=== PATIENT | female | born 1930 | race Caucasian/White ===

== ENCOUNTER 2016-12-25 08:14 | Observation (INO) | payer OTHER ==
--- NOTE | 2016-12-25 08:34 | CPEKG ---
Heart Rate: 95 RR Interval: 632 P-R Interval: 144 QRSD Interval: 80 QT Interval: 348 QTC Interval: 438 P [place]: 15 QRS [place]: 60 T Wave [place]: 59 EKG Severity - OTHERWISE NORMAL ECG - EKG Impression: SINUS RHYTHM EKG Impression: VENTRICULAR PREMATURE COMPLEX Electronically Signed By: Latricia Yi 25-Dec-2016 14:24:50
--- NOTE | 2016-12-25 09:05 | EDPHY ---
H & P Time Seen by Provider: 12/25/16 08:18 HPI/ROS: CHIEF COMPLAINT: Chest pain, SVT HISTORY OF PRESENT ILLNESS: Patient is an 86-year-old female with a history of SVT, pacer in place, coronary artery disease who presents emergency department with chest pain and palpitations. Patient called EMS from home after developing substernal chest pain. She describes it as sharp and moderate. It did not radiate. She denies shortness of breath, nausea or vomiting. She had no diaphoresis. Patient describes palpitations. She has no recent illness. No leg pain or swelling. EMS reports that they found the patient with a heart rate of 180. She was given adenosine 6 mg IV and converted to a sinus/paced rhythm REVIEW OF SYSTEMS: My complete review of systems is negative except as mentioned in the HPI. Past Medical/Surgical History: Includes hypertension, coronary artery disease. Of note, the patient is on warfarin. She is unclear why she is taking this medication. I reviewed her record from the detention was unable to find a dysrhythmia or atrial fibrillation listed. " Cardiac" was checked on her paperwork. Past surgical history: Includes Stent placement Social history: The patient lives in independent living at [facility]. Smoking Status: Former smoker Physical Exam: Vitals noted GENERAL: Well-appearing, in no acute distress, alert. HEENT: Eyes normal to inspection, normal pharynx, no signs of dehydration. NECK: No thyromegaly, no lymphadenopathy, supple. RESPIRATORY: Clear to auscultation bilaterally, no rales, rhonchi or wheezing. CVS: Regular rate and rhythm, no rubs, murmurs, or gallops. ABDOMEN: Soft, nontender, nondistended, no organomegaly. BACK: Normal to inspection, no CVA tenderness. SKIN: Normal color, no rash, warm, dry. No pallor. EXTREMITIES: No pedal edema, no calf tenderness, no Homans sign or cords, no joint swelling. NEURO/PSYCH: Alert and oriented x3, normal mood and affect, normal motor sensory exam. No obvious cranial nerve deficit. Constitutional: Initial Vital Signs Temperature (C) 36.4 C 12/25/16 08:31 Heart Rate 94 12/25/16 08:31 Respiratory Rate 21 H 12/25/16 08:31 Blood Pressure 166/102 H 12/25/16 08:31 O2 Sat (%) 96 12/25/16 08:31 O2 Delivery Mode Nasal Cannula O2 (L/minute) 3 Allergies/Adverse Reactions: Opioids - Morphine Analogues Allergy (Verified 12/25/16 08:29) Home Medications: Medication Instructions Recorded Crestor 12/25/16 Furosemide 12/25/16 Isosorbide Dinitrate 12/25/16 Metoprolol Succinate 12/25/16 Nitroglycerin 12/25/16 Potassium 12/25/16 Spiriva Handihaler 12/25/16 Warfarin Sodium 12/25/16 Medical Decision Making - Diagnostics EKG Interpretation: Sinus rhythm at 95. The PC. Normal axis. Normal intervals. No ST or T-wave abnormalities. Of note, there are pacer spikes noted on the strips from EMS. ED Course/Re-evaluation: I met EMS on arrival. Report was taken from the automotive parts coordinator. I reviewed the patient's EKG and rhythm strips from EMS. On my evaluation the patient no longer had any chest pain. Her symptoms have resolved. Patient has a [employer] [facility] pacer. Interrogation was ordered. Patient's CBC was unremarkable. The creatinine was normal with an elevated BUN of 32. Patient's INR was 2.2. I discussed the case with [facility] interrogator. Please refer to the report. Patient did have episodes of atrial fibrillation with a rapid ventricular rate. Possible AVNRT. I rechecked the patient on numerous occasions. She was stable throughout her stay. I discussed the plan with the hospitalist service. Patient will be admitted for further observation and care. I answered all the patient's questions. Differential Diagnosis: My differential includes but is not limited to SVT, ACS, acute [place], dysrhythmia, atrial fibrillation, pacer failure, pericarditis, myocarditis, dissection, aneurysm, dehydration, electrolyte abnormality, sugar abnormality - Data Points Laboratory Results: Laboratory Results 12/25/16 08:25 12/25/16 08:25 12/25/16 12/25/16 12/25/16 08:25 08:25 08:25 WBC 7.69 10^3/uL 10^3/uL (3.80-9.50) RBC 4.72 10^6/uL 10^6/uL (4.18-5.33) Hgb 14.3 g/dL g/dL (12.6-16.3) Hct 43.5 % % (38.0-47.0) MCV 92.2 fL fL (81.5-99.8) MCH 30.3 pg pg (27.9-34.1) MCHC 32.9 g/dL g/dL (32.4-36.7) RDW 14.9 % % (11.5-15.2) Plt Count 163 10^3/uL 10^3/uL (150-400) MPV 10.5 fL fL (8.7-11.7) Neut % (Auto) 69.6 % % (39.3-74.2) Lymph % (Auto) 20.7 % % (15.0-45.0) [place] % (Auto) 6.6 % % (4.5-13.0) Eos % (Auto) 2.3 % % (0.6-7.6) Baso % (Auto) 0.4 % % (0.3-1.7) Nucleat RBC Rel Count 0.0 % % (0.0-0.2) Absolute Neuts (auto) 5.35 10^3/uL 10^3/uL (1.70-6.50) Absolute Lymphs (auto) 1.59 10^3/uL 10^3/uL (1.00-3.00) Absolute Monos (auto) 0.51 10^3/uL 10^3/uL (0.30-0.80) Absolute Eos (auto) 0.18 10^3/uL 10^3/uL (0.03-0.40) Absolute Basos (auto) 0.03 10^3/uL 10^3/uL (0.02-0.10) Absolute Nucleated RBC 0.00 10^3/uL 10^3/uL (0-0.01) Immature Gran % 0.4 % % (0.0-1.1) Immature Gran # 0.03 10^3/uL 10^3/uL (0.00-0.10) PT 24.6 SEC H SEC (12.0-15.0) INR 2.20 H (0.83-1.16) APTT 38.5 SEC H SEC (23.0-38.0) D-Dimer Pending Sodium 137 mEq/L mEq/L (134-144) Potassium 4.2 mEq/L mEq/L (3.5-5.2) Chloride 101 mEq/L mEq/L (97-110) Carbon Dioxide 25 mEq/l mEq/l (22-31) Anion Gap 11 mEq/L mEq/L (8-16) BUN 32 mg/dL H mg/dL (7-23) Creatinine 0.9 mg/dL mg/dL (0.6-1.0) Estimated GFR 60 Glucose 202 mg/dL H mg/dL (70-100) Calcium 9.8 mg/dL mg/dL (8.5-10.4) Total Bilirubin 1.0 mg/dL mg/dL (0.1-1.4) Conjugated Bilirubin 0.5 mg/dL mg/dL (0.0-0.5) Unconjugated Bilirubin 0.5 mg/dL mg/dL (0.0-1.1) AST 44 IU/L IU/L (14-46) ALT 68 IU/L H IU/L (9-52) Alkaline Phosphatase 83 IU/L IU/L (38-126) Troponin I Pending Total Protein 7.0 g/dL g/dL (6.3-8.2) Albumin 3.9 g/dL g/dL (3.5-5.0) Lipase 122.0 IU/L IU/L (23-300) Departure - Departure Disposition: [facility] Inpatient Acute Clinical Impression: SVT (supraventricular tachycardia) Chest pain Qualifiers: Chest pain type: other chest pain Qualified Code(s): R07.89 - Other chest pain Condition: Good Referrals: TEJAL BALLARD [Primary Care Provider] - As per Instructions
[2016-12-25] MEDS ORDERED: NS 250 ML IV ONE (09:13)
[2016-12-25 09:18] LABS: % IMMATURE GRANULYOCYTES 0.4 % (0.0-1.1); ABSOLUTE IMMATURE GRANULOCYTES 0.03 10^3/uL (0.00-0.10); ADD DIFF? NO; ADD MORPH? NO; ADD SCAN? NO; ATYPICAL LYMPHOCYTE FLAG 0 (0-99); FRAGMENT RBC FLAG 0 (0-99); HEMATOCRIT 43.5 % (38.0-47.0); HEMOGLOBIN 14.3 g/dL (12.6-16.3); LEFT SHIFT FLG 0 (0-99); LIPEMIA HEMOLYSIS FLAG 80 (0-99); MEAN CELL HEMOGLOBIN 30.3 pg (27.9-34.1); MEAN CELL HEMOGLOBIN CONCENTR. 32.9 g/dL (32.4-36.7); MEAN CELL VOLUME 92.2 fL (81.5-99.8); MEAN PLATELET VOLUME 10.5 fL (8.7-11.7); PLATELET CLUMPS FLAG 10 (0-99); PLATELET COUNT 163 10^3/uL (150-400); RED BLOOD CELL COUNT 4.72 10^6/uL (4.18-5.33); RED CELL DISTRIBUTION WIDTH 14.9 % (11.5-15.2)
[2016-12-25 09:24] LABS: ALANINE AMINOTRANSFERASE 68 IU/L (9-52); ALBUMIN 3.9 g/dL (3.5-5.0); ALKALINE PHOSPHATASE 83 IU/L (38-126); ANION GAP 11 mEq/L (8-16); ASPARTATE AMINOTRANSFERASE 44 IU/L (14-46); BILIRUBIN-CONJUGATED 0.5 mg/dL (0.0-0.5); BILIRUBIN-UNCONJUGATED 0.5 mg/dL (0.0-1.1); CALCIUM 9.8 mg/dL (8.5-10.4); CARBON DIOXIDE 25 mEq/l (22-31); CHLORIDE 101 mEq/L (97-110); CREATININE 0.9 mg/dL (0.6-1.0); GLOMERULAR FILTRATION RATE 60; GLUCOSE 202 mg/dL (70-100); POTASSIUM 4.2 mEq/L (3.5-5.2); SODIUM 137 mEq/L (134-144)
[2016-12-25 09:28] LABS: INR 2.2 (0.83-1.16); PROTIME(PATIENT) 24.6 SEC (12.0-15.0)
[2016-12-25 09:29] LABS: APTT 38.5 SEC (23.0-38.0)
[2016-12-25 09:35] LABS: TROPONIN I < 0.012 ng/mL (0-0.034)
[2016-12-25 11:31] VITALS: BP 158/93; PULSE 75; RESP 19; TEMP 97.9; O2SAT 92
--- NOTE | 2016-12-25 13:51 | GHP ---
DATE OF ADMISSION: 12/25/2016 CHIEF COMPLAINT: Chest pain, palpitations. HISTORY OF PRESENT ILLNESS: An 86-year-old female with a history of coronary artery disease as well as atrial fibrillation. She was in her usual state of health and then this morning, felt palpitati ons and chest pressure. EMS was called and she was found to be in a narrow complex tachycardia. Sh e was given adenosine and she converted to a sinus paced rhythm. She has had this happen about ever y year or so, every year or [id number]. She states that she does not know why it happens, but she is usually observed and there are no other interventions that have been done. She has a cardiol ogist at [facility]. Currently, she denies any chest pain and dyspnea on exertion. No fevers o r chills. She has essentially no complaints and is back to her baseline. She wants to go home. REVIEW OF SYSTEMS: A 10-point review of systems is otherwise negative. PAST MEDICAL HISTORY: 1. Coronary artery disease, status post 3 stents. 2. Atrial fibrillation. 3. Pacemaker. 4. Chronic obstructive pulmonary disease. 5. Type 2 diabetes. MEDICATIONS: Her medications were reviewed. SOCIAL HISTORY: No smoking. No alcohol. Lives in assisted living. FAMILY HISTORY: Father of coronary artery disease. PHYSICAL EXAM: VITAL SIGNS: Afebrile, blood pressure is 158/93, heart rate 75, oxygen saturation 9 2% on 3 L. GENERAL: The patient is well developed, in no apparent distress. HEENT: Nonicteric sc lerae. Extraocular movements intact. Moist mucous membranes. NECK: Supple. No thyromegaly. ZAHRA GS: Clear to auscultation. Decreased breath sounds. CARDIOVASCULAR: Regular rate and rhythm. No murmurs or gallops. ABDOMEN: Positive bowel sounds. Soft, nontender, nondistended. No hepatospl enomegaly. EXTREMITIES: No clubbing, cyanosis, or edema. SKIN: Without rash. Warm, dry, intact. NEUROLOGIC: Alert and oriented x3. Moving all 4 extremities equally. PSYCH: Normal affect. LABS: CBC is completely normal. INR is 2.2. Chemistry is normal. Troponin is negative. EKG show s normal sinus rhythm with no ischemic changes. Chest x-ray is normal. ASSESSMENT: This is an 86-year-old female with a history of paroxysmal atrial fibrillation status p ost cardioversion with adenosine. PLAN: The patient has no ischemic symptoms. EKG is nonischemic. Initial troponin is negative. Sh aldair has no symptoms suggesting angina. She has had this happen to her before, but it does not seem to be that frequent. At this point, I am not sure there is any utility of watching her in the hospita l. She very much wants to go home, which I think is reasonable. We will discharge her home basical ly on the same medicines, and she can follow up with her health and safety inspector within a week. Her pacer was interrogated and it looked like she had atrial fibrillation with RVR. She currently is already on a nticoagulation as well as a beta helen, and I would not change this. We will go ahead and dischar ge her home. /[id number]/MODL
== END 2016-12-25 15:10 | disposition home or self-care (01) ==
LOC: F2W 11:21
PROVIDERS: ADMIT Internal Medicine; ATTEND Internal Medicine
DX: I47.1 Supraventricular tachycardia (principal); I25.10 Atherosclerotic heart disease of native coronary artery without angina pectoris; Z95.0 Presence of cardiac pacemaker; J44.9 Chronic obstructive pulmonary disease, unspecified; E11.9 Type 2 diabetes mellitus without complications; Z87.891 Personal history of nicotine dependence; Z79.01 Long term (current) use of anticoagulants; Z95.5 Presence of coronary angioplasty implant and graft
CPT/HCPCS: 71020; 93005; G0378

== ENCOUNTER 2017-01-07 15:43 | Emergency (ER) | payer OTHER ==
[2017-01-07 16:10] VITALS: O2SAT 94
[2017-01-07 16:36] LABS: % IMMATURE GRANULYOCYTES 0.6 % (0.0-1.1); ABSOLUTE IMMATURE GRANULOCYTES 0.04 10^3/uL (0.00-0.10); ADD DIFF? NO; ADD MORPH? NO; ADD SCAN? NO; ATYPICAL LYMPHOCYTE FLAG 0 (0-99); FRAGMENT RBC FLAG 0 (0-99); HEMATOCRIT 45.1 % (38.0-47.0); HEMOGLOBIN 14.5 g/dL (12.6-16.3); LEFT SHIFT FLG 10 (0-99); LIPEMIA HEMOLYSIS FLAG 80 (0-99); MEAN CELL HEMOGLOBIN 30.3 pg (27.9-34.1); MEAN CELL HEMOGLOBIN CONCENTR. 32.2 g/dL (32.4-36.7); MEAN CELL VOLUME 94.4 fL (81.5-99.8); MEAN PLATELET VOLUME 10.7 fL (8.7-11.7); PLATELET CLUMPS FLAG 10 (0-99); PLATELET COUNT 229 10^3/uL (150-400); RED BLOOD CELL COUNT 4.78 10^6/uL (4.18-5.33); RED CELL DISTRIBUTION WIDTH 14.9 % (11.5-15.2)
[2017-01-07 16:41] LABS: ANION GAP 12 mEq/L (8-16); CALCIUM 10.2 mg/dL (8.5-10.4); CARBON DIOXIDE 33 mEq/l (22-31); CHLORIDE 96 mEq/L (97-110); CREATININE 1.2 mg/dL (0.6-1.0); GLOMERULAR FILTRATION RATE 43; GLUCOSE 190 mg/dL (70-100); POTASSIUM 4.6 mEq/L (3.5-5.2); SODIUM 141 mEq/L (134-144)
[2017-01-07 16:51] LABS: TROPONIN I < 0.012 ng/mL (0-0.034)
[2017-01-07] MEDS ORDERED: NS 500 ML IV ONE (17:02)
--- NOTE | 2017-01-07 17:19 | EDPHY ---
H & P Time Seen by Provider: 01/07/17 16:29 HPI/ROS: CHIEF COMPLAINT: Palpitations HISTORY OF PRESENT ILLNESS: 86-year-old female with history of atrial fibrillation and coronary artery disease presents with palpitations. Onset of palpitations at 3:30 p.m. today. Associated with shortness of breath and some dizziness. The symptoms spontaneously resolved in about 30 minutes. Similar to prior episodes of rapid atrial fibrillation. She was seen in this emergency department on 12/25/2016 two seventeen for similar symptoms. Her pacemaker was interrogated and revealed atrial fibrillation with RVR. No other dysrhythmia. She is currently asymptomatic and wants to go home. REVIEW OF SYSTEMS: Constitutional: No fever, no chills Eyes: No visual changes ENT: No sore throat Respiratory: No cough Cardiac: No chest pain Gastrointestinal: No nausea, no vomiting, no abdominal pain Genitourinary: No hematuria, no dysuria Musculoskeletal: No leg pain or swelling Skin: No rash Neurological: No headache,no weakness Psychiatric: No depression Past Medical/Surgical History: Atrial fibrillation coronary artery disease Pacemaker Diabetes Oxygen-dependent COPD Social History: Lives in assisted living Smoking Status: Former smoker Physical Exam: General Appearance: Alert, pleasant Eyes: Pupils equal and round, no conjunctival pallor ENT, Mouth: Mucous membranes moist Neck: Normal inspection Respiratory: Lungs are clear to auscultation Cardiovascular: Regular rate and rhythm Gastrointestinal: Abdomen is soft and nontender Neurological: A&O, nonfocal exam Skin: Warm and dry, no rash Extremities: Nontender, no pedal edema Psychiatric: Mood and affect normal Constitutional: Initial Vital Signs Temperature (C) 36.7 C 01/07/17 15:43 Heart Rate 91 01/07/17 15:43 Respiratory Rate 14 01/07/17 15:43 Blood Pressure 126/78 H 01/07/17 15:43 O2 Sat (%) 93 01/07/17 15:43 O2 Delivery Mode Nasal Cannula O2 (L/minute) 2 Allergies/Adverse Reactions: Opioids - Morphine Analogues Allergy (Verified 12/25/16 08:29) Home Medications: Medication Instructions Recorded Acetaminophen [Tylenol ES 500 mg 1,000 mg PO Q8H PRN 12/25/16 (*)] Albuterol [Proventil Inhaler HFA 2 puffs IH Q4 PRN 12/25/16 (*)] Cholecalciferol Vit D3 [Vitamin D3 2,000 units PO DAILY 12/25/16 (*)] Furosemide [Lasix 40 MG (*)] 40 mg PO DAILY 12/25/16 Herbals/Supplements -Info Only 1 ea PO DAILY 12/25/16 Isosorbide Mononitrate [Imdur 30 30 mg PO HS 12/25/16 mg (*)] Metoprolol Succinate Xr [Toprol Xl 50 mg PO BID 12/25/16 100 mg (*)] Nitroglycerin [Nitrostat 0.4 mg 0.4 mg SL Q5M PRN 12/25/16 (*)] Potassium Chloride [Klor-Con] 20 meq PO DAILY 12/25/16 Rosuvastatin Calcium [Crestor 40mg 40 mg PO HS 12/25/16 (*)] Warfarin Sodium [Coumadin 4MG (*)] 4 mg PO SUMOTUWEFRSA 12/25/16 Warfarin Sodium [Coumadin 5MG (*)] 5 mg PO TH 12/25/16 guaiFENesin [Mucinex 600 MG (*)] 600 mg PO BID PRN 12/25/16 Medical Decision Making - Diagnostics EKG Interpretation: EKG interpreted by me reveals normal sinus rhythm, rate 93, no ST or T segment changes. Imaging: Chest x-ray independently reviewed by me reveals no acute disease. ED Course/Re-evaluation: The patient had a brief episode of rapid atrial fibrillation, which resolved spontaneously with while she was in the emergency department. I suggested that we give her an extra dose of metoprolol. However she declines. She took her usual metoprolol just prior to arrival. She will follow up with her enamel finisher for consideration of a change in her metoprolol dosing. She thinks that she has had increased incidences of rapid atrial fibrillation since change to once a day dosing of metoprolol. Differential Diagnosis: Differential diagnosis includes though it is not limited to pneumonia, pneumothorax, pulmonary embolism, aortic dissection, pericarditis, acute coronary syndrome. - Data Points Laboratory Results: Laboratory Results 01/07/17 15:50 01/07/17 15:50 Medications Given: Discontinued Medications Sodium Chloride (Ns) 500 mls @ 0 mls/hr IV ONCE ONE PRN Reason: As Directed Stop: 01/07/17 17:03 Last Admin: 01/07/17 17:18 Dose: 500 mls Departure - Departure Disposition: Home, Routine, Self-Care Clinical Impression: Palpitations Atrial fibrillation Qualifiers: Atrial fibrillation type: paroxysmal Qualified Code(s): I48.0 - Paroxysmal atrial fibrillation Condition: Good Instructions: A-fib (Atrial Fibrillation) (ED) Additional Instructions: Follow-up with your enamel finisher this week. Referrals: TEJAL BALLARD [Primary Care Provider] - As per Instructions
[2017-01-07 17:22] LABS: INR 1.51 (0.83-1.16); PROTIME(PATIENT) 18.2 SEC (12.0-15.0)
[2017-01-07 18:05] VITALS: BP 123/86; RESP 18; TEMP 98.6
[2017-01-07 18:45] VITALS: PULSE 87
== END 2017-01-07 18:40 | disposition home or self-care (01) ==
LOC: EDUNIT#
DX: I48.0 Paroxysmal atrial fibrillation (principal); J44.9 Chronic obstructive pulmonary disease, unspecified; E11.9 Type 2 diabetes mellitus without complications; I25.10 Atherosclerotic heart disease of native coronary artery without angina pectoris; Z79.01 Long term (current) use of anticoagulants; Z95.0 Presence of cardiac pacemaker; Z87.891 Personal history of nicotine dependence

== ENCOUNTER 2017-04-13 12:47 | Observation (INO) | payer OTHER ==
--- NOTE | 2017-04-13 12:56 | CPEKG ---
Heart Rate: 120 RR Interval: 500 QRSD Interval: 92 QT Interval: 312 QTC Interval: 441 QRS [place]: 47 T Wave [place]: -51 EKG Severity - ABNORMAL ECG - EKG Impression: ATRIAL FIBRILLATION Electronically Signed By: Jett Hoang 13-Apr-2017 13:02:19
--- NOTE | 2017-04-13 13:02 | EDPHY ---
H & P Time Seen by Provider: 04/13/17 13:00 HPI/ROS: CHIEF COMPLAINT: Chest pain HISTORY OF PRESENT ILLNESS: This 86-year-old woman has a history of coronary disease and atrial fibrillation on Coumadin. She developed central chest heaviness and tightness this morning at 6:30 a.m. associated with a rapid irregular heart rate like her usual atrial fibrillation. Symptoms worse with exertion. Not associated with shortness of breath or coughing or syncope. Currently symptoms of chest discomfort have resolved but she can still tell that her heart rate is fast. REVIEW OF SYSTEMS: Eye: no change in vision ENT: no sore throat, runny nose Cardiac: HPI Pulmonary: no cough or SOB Abdomen: no vomiting, diarrhea, abdominal pain Musculoskeletal: no back pain Skin: no rash Neuro: no headache Constitutional: no fever : no urinary symptoms A comprehensive 10 point review of systems is otherwise negative aside from elements mentioned in the history of present illness. PAST MEDICAL HISTORY: H&P dated 12/25/2016 reviewed shows coronary disease with stenting, AFib, pacemaker, COPD, diabetes. Social history: Former smoker General Appearance: Alert and conversant, cooperative. Eyes: No scleral icterus. ENT, Mouth: Normal mucous membranes. Respiratory: Bibasilar rales but speaks in full sentences Cardiovascular: Irregular and tachycardic Gastrointestinal: Abdomen is soft and non tender. Neurological: Alert and oriented x3. Normally conversant. Face symmetric, normal movement and sensation in all extremities. Skin: Warm and dry, no rashes. Musculoskeletal: Peripheral edema but no calf tenderness Psychiatric: Not agitated. Emergency Department course/MDM: Patient presents with chest pain for 6 hours and rapid atrial fibrillation. Heart rate in the emergency department is between 120 and 155. She is currently on a beta-helen. No echocardiogram in our system. Her systolic blood pressure is up to 192 in the pre-hospital setting. I think it is reasonable to use 3 doses of metoprolol in the ER for initial rate control. After 1st dose of metoprolol patient's blood pressure dropped significantly. Re-examined and heart rate 120, IV diltiazem drip started at 5 mg an hour. Admit for possibility of acute coronary syndrome with chest pain, history of bypass surgery, rapid atrial fibrillation. No aspirin given because of warfarin and elevated INR. Smoking Status: Former smoker Constitutional: Initial Vital Signs Temperature (C) 36.5 C 04/13/17 12:55 Heart Rate 155 H 04/13/17 12:55 Respiratory Rate 20 04/13/17 12:55 Blood Pressure 146/126 H 04/13/17 12:55 O2 Sat (%) 100 04/13/17 12:55 O2 Delivery Mode Nasal Cannula O2 (L/minute) 3 Allergies/Adverse Reactions: Opioids - Morphine Analogues Allergy (Verified 12/25/16 08:29) Home Medications: Medication Instructions Recorded Albuterol Sulfate [Ventolin Hfa] 1 - 2 puffs IH Q4 PRN 04/13/17 Cholecalciferol Vit D3 [Vitamin D3 1,000 units PO DAILY 04/13/17 (*)] Furosemide [Lasix 40 MG (*)] 40 mg PO DAILY 04/13/17 Herbals/Supplements -Info Only 1 ea PO DAILY 04/13/17 Isosorbide Mononitrate [Imdur 30 30 mg PO HS 04/13/17 mg (*)] METOPROLOL SUCCINATE [METOPROLOL 50 mg PO DAILY@04/13/17 SUCCINATE] METOPROLOL SUCCINATE [METOPROLOL 100 mg PO HS 04/13/17 SUCCINATE] Nitroglycerin [Nitrostat 0.4 mg 0.4 mg SL AD PRN 04/13/17 (*)] Potassium Chloride [Klor-Con M20] 20 meq PO DAILY 04/13/17 Warfarin Sodium [Coumadin 4MG (*)] 4 mg PO SUMOFRSA 04/13/17 Warfarin Sodium [Coumadin 5MG (*)] 5 mg PO TUWETH 04/13/17 guaiFENesin [Mucinex 600 MG (*)] 600 mg PO BID PRN 04/13/17 Medical Decision Making - Diagnostics EKG Interpretation: 12-lead EKG interpreted by me; official reading is in trace master. My interpretation is atrial fibrillation rate 120 without ischemic changes Imaging Results: Imaging Impressions Chest X-Ray 04/13/17 12:59 Impression: 1. Stable hyperexpansion with peribronchial thickening, which could be related to COPD or bronchitis. 2. Stable cardiomegaly without failure. Differential Diagnosis: Differential diagnosis considered for chest pain including but not limited to myocardial ischemia, aortic dissection, pericarditis, pulmonary embolus, chest wall pain, pleural inflammation and pulmonary infectious causes. Consult/Admit Bed Type: [place] [id number] Critical Care Time: Critical care time spent by me, Dr. Hoang, exclusively with the care of this patient was 35 minutes, exclusive of PA or SENIOR ACCOUNTANT ANALYST time and exclusive of separate procedures. The organ system at risk was cardiovascular with rapid atrial fibrillation and abnormal vital signs and chest pain, and I ordered IV metoprolol, multiple diagnostic studies, diltiazem drip, hospitalist consult to stabilize the patient and prevent worsening of the patient's condition. - Data Points Laboratory Results: Laboratory Results 04/13/17 12:50 04/13/17 12:50 04/13/17 04/13/17 04/13/17 13:46 12:50 12:50 WBC RBC Hgb Hct MCV MCH MCHC RDW Plt Count MPV Neut % (Auto) Lymph % (Auto) [place] % (Auto) Eos % (Auto) Baso % (Auto) Nucleat RBC Rel Count Absolute Neuts (auto) Absolute Lymphs (auto) Absolute Monos (auto) Absolute Eos (auto) Absolute Basos (auto) Absolute Nucleated RBC Immature Gran % Immature Gran # PT 21.9 SEC H SEC REJ (12.0-15.0) INR 1.90 H REJ (0.83-1.16) Sodium 139 mEq/L mEq/L (134-144) Potassium 4.1 mEq/L mEq/L (3.5-5.2) Chloride 99 mEq/L mEq/L (97-110) Carbon Dioxide 27 mEq/l mEq/l (22-31) Anion Gap 13 mEq/L mEq/L (8-16) BUN 28 mg/dL H mg/dL (7-23) Creatinine 1.2 mg/dL H mg/dL (0.6-1.0) Estimated GFR 43 Glucose 238 mg/dL H mg/dL (70-100) Calcium 9.8 mg/dL mg/dL (8.5-10.4) Troponin I < 0.012 ng/mL ng/mL (0-0.034) NT-Pro-B Natriuret Pep 1330 pg/mL H pg/mL (0-450) 04/13/17 12:50 WBC 6.64 10^3/uL 10^3/uL (3.80-9.50) RBC 4.53 10^6/uL 10^6/uL (4.18-5.33) Hgb 13.7 g/dL g/dL (12.6-16.3) Hct 43.0 % % (38.0-47.0) MCV 94.9 fL fL (81.5-99.8) MCH 30.2 pg pg (27.9-34.1) MCHC 31.9 g/dL L g/dL (32.4-36.7) RDW 14.0 % % (11.5-15.2) Plt Count 195 10^3/uL 10^3/uL (150-400) MPV 10.9 fL fL (8.7-11.7) Neut % (Auto) 64.4 % % (39.3-74.2) Lymph % (Auto) 23.0 % % (15.0-45.0) [place] % (Auto) 7.1 % % (4.5-13.0) Eos % (Auto) 4.4 % % (0.6-7.6) Baso % (Auto) 0.8 % % (0.3-1.7) Nucleat RBC Rel Count 0.0 % % (0.0-0.2) Absolute Neuts (auto) 4.28 10^3/uL 10^3/uL (1.70-6.50) Absolute Lymphs (auto) 1.53 10^3/uL 10^3/uL (1.00-3.00) Absolute Monos (auto) 0.47 10^3/uL 10^3/uL (0.30-0.80) Absolute Eos (auto) 0.29 10^3/uL 10^3/uL (0.03-0.40) Absolute Basos (auto) 0.05 10^3/uL 10^3/uL (0.02-0.10) Absolute Nucleated RBC 0.00 10^3/uL 10^3/uL (0-0.01) Immature Gran % 0.3 % % (0.0-1.1) Immature Gran # 0.02 10^3/uL 10^3/uL (0.00-0.10) PT INR Sodium Potassium Chloride Carbon Dioxide Anion Gap BUN Creatinine Estimated GFR Glucose Calcium Troponin I NT-Pro-B Natriuret Pep Medications Given: Discontinued Medications Diltiazem HCl 125 mg/ Dextrose 125 mls @ 0 mls/hr IV EDNOW ONE; As Directed PRN Reason: Protocol Stop: 04/13/17 14:45 Last Admin: 04/13/17 15:35 Dose: 125 mls Sodium Chloride (Ns) 500 mls @ 999 mls/hr IV ONCE ONE Stop: 04/13/17 16:55 Last Admin: 04/13/17 16:44 Dose: 500 mls Metoprolol Tartrate (Lopressor Injection) 5 mg IVP Q5M [facility] Stop: 04/13/17 13:26 Last Admin: 04/13/17 14:44 Dose: Not Given Departure - Departure Disposition: [facility] Inpatient Acute Clinical Impression: Chest pain Qualifiers: Chest pain type: unspecified Qualified Code(s): R07.9 - Chest pain, unspecified Atrial fibrillation Qualifiers: Atrial fibrillation type: paroxysmal Qualified Code(s): I48.0 - Paroxysmal atrial fibrillation Condition: Good
[2017-04-13 13:05] LABS: % IMMATURE GRANULYOCYTES 0.3 % (0.0-1.1); ABSOLUTE IMMATURE GRANULOCYTES 0.02 10^3/uL (0.00-0.10); ADD DIFF? NO; ADD MORPH? NO; ADD SCAN? NO; ATYPICAL LYMPHOCYTE FLAG 30 (0-99); FRAGMENT RBC FLAG 0 (0-99); HEMOGLOBIN 13.7 g/dL (12.6-16.3); LEFT SHIFT FLG 10 (0-99); LIPEMIA HEMOLYSIS FLAG 80 (0-99); MEAN CELL HEMOGLOBIN 30.2 pg (27.9-34.1); MEAN CELL HEMOGLOBIN CONCENTR. 31.9 g/dL (32.4-36.7); MEAN CELL VOLUME 94.9 fL (81.5-99.8); MEAN PLATELET VOLUME 10.9 fL (8.7-11.7); PLATELET CLUMPS FLAG 10 (0-99); PLATELET COUNT 195 10^3/uL (150-400); RED BLOOD CELL COUNT 4.53 10^6/uL (4.18-5.33)
[2017-04-13 13:21] LABS: ANION GAP 13 mEq/L (8-16); CALCIUM 9.8 mg/dL (8.5-10.4); CARBON DIOXIDE 27 mEq/l (22-31); CHLORIDE 99 mEq/L (97-110); CREATININE 1.2 mg/dL (0.6-1.0); GLOMERULAR FILTRATION RATE 43; GLUCOSE 238 mg/dL (70-100); POTASSIUM 4.1 mEq/L (3.5-5.2); SODIUM 139 mEq/L (134-144)
[2017-04-13] MEDS: METOPROLOL TARTRATE 5 MG/5 ML INJ IVP SCH ×3 (13:26→14:44)
[2017-04-13 13:33] LABS: TROPONIN I < 0.012 ng/mL (0-0.034)
[2017-04-13 14:00] LABS: INR 1.9 (0.83-1.16); PROTIME(PATIENT) 21.9 SEC (12.0-15.0)
[2017-04-13] MEDS ORDERED: DILTIAZEM 125 MG in D5W 125 ML IV ONE (14:44)
[2017-04-13] MEDS ORDERED: NS 500 ML IV ONE (16:25)
[2017-04-13] MEDS ORDERED: ONDANSETRON 4 MG/2 ML VIAL IVP PRN (16:25)
[2017-04-13] MEDS ORDERED: ACETAMINOPHEN 325 MG TAB PO PRN (16:25)
[2017-04-13] MEDS ORDERED: NITROGLYCERIN 0.4 MG BTL SL PRN (16:26)
[2017-04-13] MEDS ORDERED: guaiFENesin 600 MG TAB.ER PO PRN (16:26)
[2017-04-13] MEDS ORDERED: WARFARIN SODIUM 4 MG TAB PO SCH (16:30)
[2017-04-13] MEDS: DILTIAZEM 30 MG TAB PO SCH ×2 (16:44→23:07)
--- NOTE | 2017-04-13 17:04 | GHP ---
[f rep st] HISTORY AND PHYSICAL DATE OF ADMISSION: 04/13/2017 CHIEF COMPLAINT: Chest pain. HISTORY OF PRESENT ILLNESS: This is an 86-year-old female with history of coronary artery disease a nd AFib who presented to the emergency department with chest pain. The patient developed chest pain while getting out of bed at 6:30 this morning. It was described as in the middle of her chest, 6/1 0 burning pressure that was constant since onset. The pain was worse with movement. Pain went away after coming to the emergency department and getting IV pain medication. Prior to the ED, she trie d nitroglycerin which did not help. Upon initial presentation to the emergency department, she was found to be in rapid atrial fibrillation with heart rate in the 150s. She was given some metoprolol that decreased her blood pressure. She was then started on a diltiazem drip. PAST MEDICAL HISTORY: 1. Atrial fibrillation. 2. Coronary artery disease with stent placement. 3. Diabetes. PAST SURGICAL HISTORY: 1. Pacemaker placement. 2. Left total knee arthroplasty. 3. Left total shoulder arthroplasty. 4. Cholecystectomy. 5. Umbilical hernia repair. 6. Septoplasty. 7. ACL repair. 8. COPD. HOME MEDICATIONS: Reviewed. Refer to [employer] for details. ALLERGIES: Opioids. SOCIAL HISTORY: She denies any alcohol, tobacco, or illicit drug use. She is a former smoker. FAMILY HISTORY: Reviewed and noncontributory. REVIEW OF SYSTEMS: Comprehensive 10-point review of systems was done and is negative except for as mentioned in the HPI. PHYSICAL EXAM: VITAL SIGNS: Blood pressure 122/81, heart rate 121, respiratory rate 14, O2 sat 95% on 3 L, temperature afebrile. GENERAL: No acute distress. HEAD: Normocephalic, atraumatic. EYE S: PERRLA. Sclerae anicteric. MOUTH: Moist mucous membranes. NECK: Supple. No lymphadenopathy . CARDIOVASCULAR: Tachycardic S1, S2, irregularly irregular. No JVD. No lower extremity edema. PULMONARY: Lungs are clear. No wheezes, rales, or rhonchi. ABDOMEN: Soft and distended with norm oactive bowel sounds. No guarding or rebound tenderness. EXTREMITIES: No clubbing or cyanosis. N EURO: Cranial nerves 2-12 grossly intact. No focal motor or sensory deficits. SKIN: Clear, no ra shes. DIAGNOSTICS: WBC 6.6, hemoglobin 13.7, hematocrit 43, platelets 195. INR 1.9. Sodium 139, potassi um 4.1, chloride 99, CO2 of 27, BUN 28, creatinine 1.2, glucose 238. BNP elevated at 1330. Troponi n was less than 0.012. Chest x-ray, which I visualized and personally interpreted, shows stable cardiomegaly without signs of congestive heart failure. EKG, which I visualized and personally interpreted, shows atrial fibrillation, rate 120 beats per mi nute. There is no ST-segment elevation, depression, or Q waves. ASSESSMENT AND PLAN: This is an 86-year-old female with known coronary disease and atrial fibrillat ion presenting with: 1. Chest pain in the setting of atrial fibrillation with rapid ventricular response with known mina nary disease. Plan: The patient will be placed on observation where we will cycle her troponins. She has been started on a diltiazem drip which will be continued for rate control. We will order an echocardiogram to evaluate for valvular disease. 2. Acute diastolic heart failure most likely due to atrial fibrillation with rapid ventricular resp onse with elevated BNP. Plan: As per above. 3. History of diabetes mellitus. Plan: Check blood sugars a.c. and h.s. The patient will be placed on observation. If her troponins remain flat and her atrial fibrillation is rate controlled, she may be appropriate for discharge in the morning with outpatient followup [facility]. /[id number]/MODL
[2017-04-13 19:20] LABS: TROPONIN I 0.012 ng/mL (0-0.034)
[2017-04-13] MEDS ORDERED: ISOSORBIDE MONONITRATE 30 MG TAB.SR PO SCH (21:00)
[2017-04-13] MEDS ORDERED: METOPROLOL SUCCINATE XR 100 MG TAB PO SCH (21:00)
[2017-04-14 04:18] VITALS: PULSE 72
[2017-04-14 05:07] LABS: INR 2.12 (0.83-1.16); PROTIME(PATIENT) 23.9 SEC (12.0-15.0)
[2017-04-14 05:14] LABS: ANION GAP 10 mEq/L (8-16); CALCIUM 9.3 mg/dL (8.5-10.4); CARBON DIOXIDE 24 mEq/l (22-31); CHLORIDE 104 mEq/L (97-110); CREATININE 0.9 mg/dL (0.6-1.0); GLOMERULAR FILTRATION RATE 60; GLUCOSE 116 mg/dL (70-100); POTASSIUM 4.3 mEq/L (3.5-5.2); SODIUM 138 mEq/L (134-144)
[2017-04-14 05:20] LABS: TROPONIN I 0.019 ng/mL (0-0.034)
[2017-04-14] MEDS: DILTIAZEM 30 MG TAB PO SCH (05:27)
[2017-04-14 07:34] VITALS: BP 110/66; RESP 22; TEMP 97.5; O2SAT 95
[2017-04-14] MEDS ORDERED: METOPROLOL SUCCINATE XR 100 MG TAB PO SCH (09:00)
[2017-04-14] MEDS ORDERED: POTASSIUM CL 20 MEQ TAB PO SCH (09:00)
[2017-04-14] MEDS ORDERED: Herbals/Supplements -Info Only PO SCH (09:00)
[2017-04-14] MEDS ORDERED: CHOLECALCIFEROL VIT D3 1,000 UNITS TAB PO SCH (09:00)
--- NOTE | 2017-04-14 09:43 | ECHO ---
[id number] + + [address] : : [place] [address] : : [phone] + + Adult Echocardiographic Report + ------+ :Name: Elizabeth SOLER Date: 04/14/2017 07:53 AM : : Hospital Admission Number: [id number] Locatio n: 215: :: 1930 Gender: Female Height: 63 in : :Age: 86 yrs Race: WH Weight: 188 lb : :Reason For Study: Atrial fibrillation with heart failure : : BSA: 1.9 meters 2 : :History: Pacer/stents/A fib : + ------+ MMode/2D Measurements \T\ Calculations IVSd: 1.0 cm LVIDd: 4.4 cm FS: 35.1 % Ao root diam: 3.0 cm LVPWd: 1.0 cm LVIDs: 2.9 cm EDV(Teich): 88.3 ml LA dimension: 3.9 cm ESV(Teich): 31.2 ml EF(Teich): 64.6 % Normal Measurement Values: + + :LVIDd (3.5-5.7cm) IVSd (0.6-1.1cm) LVPWd (0.6-1.1cm) Aortic Root (2.0-3.7cm)Left Atrium (1.5-4.0cm): :LV Vol(d) (76-115ml) LV Vol(s) (29-48ml) Ejec Fraction (50-65%)PV Robin (0.6- 1.2m/s) TV Robin (0.4-1.0m/s) : :MV E Robin (0.8-1.0m/s)MV A Robin (0.3-1.0m/s)LVOT Robin (0.7-1.2m/s) Asc Ao Robin ( 0.9-1.8m/s) : + + Doppler Measurements \T\ Calculations MV E max robin: 98.2 cm/sec Ao V2 max: 80.1 cm/sec TR max robin: 232.1 cm/sec MV A max robin: 88.4 cm/sec Ao max P.6 mmHg TR max P.6 mmHg MV E/A: 1.1 RAP systole: 5.0 mmHg RVSP(TR): 26.6 mmHg Left Ventricle The left ventricle is normal in size. There is mild concentric left ventricular hypertrophy. The left ventricle is hyperdynamic. Ejection Fraction = 55-60%. LV basal inferior/inferoseptal/inferolateral wallls are akinetic. Right Ventricle The right ventricle is normal in size and function. There is a pacemaker lead in the right ventricle. Atria The left atrial size is normal. Right atrial size is normal. The interatrial septum is intact with no evidence for an atrial septal defect. Mitral Valve There is mild mitral annular calcification. There is no evidence of mitral valve prolapse. There is no mitral valve stenosis. There is mild mitral regurgitation. Tricuspid Valve Normal tricuspid valve. There is trace tricuspid regurgitation. Aortic Valve The aortic valve is trileaflet. The aortic valve opens well. There is no aortic stenosis. There is no aortic insufficiency. Pulmonic Valve The pulmonic valve is normal in structure and function. There is no pulmonic valvular regurgitation. Great Vessels The aortic root is normal size. Pericardium/Pleural There is no pericardial effusion. There is a fat pad seen. Conclusion A complete two-dimensional transthoracic echocardiogram was performed (2D, M-mode, Doppler and color flow Doppler). There is mild concentric left ventricular hypertrophy. LV basal inferior/inferoseptal/inferolateral wallls are akinetic. The left ventricle is hyperdynamic. Ejection Fraction = 55-60%. There is a pacemaker lead in the right ventricle. There is mild mitral annular calcification. There is mild mitral regurgitation. There is trace tricuspid regurgitation. There is a fat pad seen. Final Reading Physician: Manny Gomes signed on 04/14/2017 09:41 AM Ordering Physician: Chandan Loera Performed By: Bianka Mathew RDCS
--- NOTE | 2017-04-14 10:49 | HOSPPROG ---
Hospitalist Progress Note Assessment/Plan: 86 yo F w pAF here w rapid AF. now converted home today see dc summary Subjective: converted overnight. very anxious to leave. acknowledges prior OR Objective: Vital Signs Temp Pulse Resp BP Pulse Ox 36.4 C 72 22 H 110/66 95 04/14/17 07:31 04/14/17 09:11 04/14/17 07:31 04/14/17 09:11 04/14/17 07:31 Laboratory Results 04/14/17 04:14 04/13/17 04/14/17 04/15/17 05:59 05:59 05:59 Intake Total 1000 Output Total 1 Balance 999 PT 23.9 SEC (12.0-15.0) H 04/14/17 04:14 INR 2.12 (0.83-1.16) H 04/14/17 04:14 - Physical Exam Constitutional: no apparent distress, appears nourished Eyes: PERRL, anicteric sclera Ears, Nose, Mouth, Throat: moist mucous membranes, hearing normal Cardiovascular: regular rate and rhythym, no murmur, rub, or gallop, No systolic murmur, No irregularly irregular Respiratory: no respiratory distress, no rales or rhonchi, No inspiratory crackles Gastrointestinal: normoactive bowel sounds, soft, non-tender abdomen Genitourinary: no bladder fullness, No hercules in urethra Skin: warm, normal color Musculoskeletal: full muscle strength, no muscle tenderness Neurologic: AAOx3, sensation intact bilaterally Psychiatric: interacting appropriately, not anxious ICD10 Worksheet Patient Problems: Problems Problem Status Onset Atrial fibrillation Acute Chest pain Acute Palpitations Acute SVT (supraventricular tachycardia) Acute
--- NOTE | 2017-04-14 14:16 | GDS ---
[f rep st] DISCHARGE SUMMARY DISCHARGE DIAGNOSES: 1. Coronary artery disease with prior myocardial infarction. 2. Paroxysmal atrial fibrillation. 3. Diabetes. HOSPITAL COURSE: Please see admission history and physical by Dr. Chandan Loera. The patient presente d with palpitations and chest pain. She was found to be in rapid atrial fibrillation. She was star spike on diltiazem drip and oral diltiazem, converted overnight. She has a therapeutic INR. She had an echocardiogram, which showed an LVEF of 55% to 60% with basal inferior, inferoseptal, and inferol ateral vilchis were akinetic. She had no significant valvular lesions. The patient was unaware of e specifics of her echocardiogram, but acknowledges prior heart attack. She was noted to have heart failure symptoms at home. She does not take heart failure medicine. She is currently anticoagulat ed with therapeutic INR. She takes metoprolol for atrial fibrillation. She is very anxious to be d ischarged and accepts incomplete workup here. She gets her care by Dr. 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 She wishes to go home. She is discharged on unchanged medication regimen. S he is no longer having chest pain. She is not in heart failure. Does not have an infiltrate on [facility] st x-ray. Discharge medicines remain unchanged. Copy requested to: Dr. Ospina [facility] /[id number]/MODL
[2017-04-14] MEDS ORDERED: WARFARIN SODIUM 5 MG TAB PO SCH (16:26)
== END 2017-04-14 11:55 | disposition home or self-care (01) ==
LOC: EDUNIT# → F2W 15:20
PROVIDERS: ADMIT Family Medicine; ATTEND Family Medicine
DX: I25.10 Atherosclerotic heart disease of native coronary artery without angina pectoris (principal); I48.0 Paroxysmal atrial fibrillation; E11.9 Type 2 diabetes mellitus without complications; Z79.01 Long term (current) use of anticoagulants; Z95.5 Presence of coronary angioplasty implant and graft; Z87.891 Personal history of nicotine dependence
CPT/HCPCS: 71020; 93005; 93306; 97161; 97165; G0378; G8978; G8979; G8980; G8987; G8988; G8989; 96374

== ENCOUNTER 2017-05-23 11:27 | Inpatient (IN) | payer OTHER ==
--- NOTE | 2017-05-23 11:55 | CPEKG ---
Heart Rate: 74 RR Interval: 811 QRSD Interval: 84 QT Interval: 424 QTC Interval: 471 QRS Wright: 66 T Wave Wright: 40 EKG Severity - ABNORMAL ECG - EKG Impression: A-FLUTTER W/ PREDOM 4:1 AV BLOCK, A-RATE 294 Electronically Signed By: Brenden Hardwick 23-May-2017 16:08:22
--- NOTE | 2017-05-23 12:35 | EDPHY ---
H & P Stated Complaint: increasing sob over last month/copd/chf Time Seen by Provider: 05/23/17 12:35 - Personal History Current Tetanus/Diphtheria Vaccine: Yes - Medical/Surgical History Hx Asthma: No Hx Chronic Respiratory Disease: Yes Hx Diabetes: Yes Hx Cardiac Disease: Yes Hx Renal Disease: Yes Hx Cirrhosis: No Hx Alcoholism: No Hx HIV/AIDS: No Hx Splenectomy or Spleen Trauma: No Other PMH: pacemaker, HTN, arthritis,L knee replacement,L shoulder replacement, COPD, kidney failure, stents, dm, gallbladder removed afib - Social History Smoking Status: Former smoker Constitutional: Initial Vital Signs Temperature (C) 36.6 C 05/23/17 11:35 Heart Rate 77 05/23/17 11:35 Respiratory Rate 22 H 05/23/17 11:35 Blood Pressure 145/96 H 05/23/17 11:35 O2 Sat (%) 92 05/23/17 11:35 O2 Delivery Mode Nasal Cannula O2 (L/minute) 3 Allergies/Adverse Reactions: Opioids - Morphine Analogues Allergy (Verified 05/23/17 11:33) Home Medications: Medication Instructions Recorded Albuterol Sulfate [Ventolin Hfa] 1 - 2 puffs IH Q4 PRN 04/13/17 Cholecalciferol Vit D3 [Vitamin D3 1,000 units PO DAILY 04/13/17 (*)] Furosemide [Lasix 40 MG (*)] 40 mg PO DAILY 04/13/17 Herbals/Supplements -Info Only 1 ea PO DAILY 04/13/17 Isosorbide Mononitrate [Imdur 30 30 mg PO HS 04/13/17 mg (*)] METOPROLOL SUCCINATE 50 mg PO DAILY@04/13/17 METOPROLOL SUCCINATE 100 mg PO HS 04/13/17 Nitroglycerin [Nitrostat 0.4 mg 0.4 mg SL AD PRN 04/13/17 (*)] Potassium Chloride [Klor-Con M20] 20 meq PO DAILY 04/13/17 Warfarin Sodium [Coumadin 4MG (*)] 4 mg PO SUMOFRSA 04/13/17 Warfarin Sodium [Coumadin 5MG (*)] 5 mg PO TUWETH 04/13/17 guaiFENesin [Mucinex 600 MG (*)] 600 mg PO BID PRN 04/13/17 Cardizem 07/29/17 Medical Decision Making - Diagnostics Imaging Results: Imaging Impressions Chest X-Ray 05/23/17 12:51 Impression: 1. Mild fluid overload suspected. ED Course/Re-evaluation: CHIEF COMPLAINT: Shortness of breath with known CHF HISTORY OF PRESENT ILLNESS: 87-year-old woman who has a history of congestive heart failure and atrial fibrillation which is rate controlled and pacemaker. She is in the process of moving up the [place] and she according to her son is not very compliant with her medicines. According to the patient she is taking her Lasix and her blood pressure medicine but not her digoxin and that is the only med she states she is noncompliant with. She states that her shortness of breath has been progressing over the last several days. 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 she is looking for new onset she does not currently have 1. She denies any fevers or chills or cough or congestion. She denies any infectious type symptoms. She denies any chest pain or chest pressure. She has some minimally increased swelling in her ankles but not too bad. She has tremendous amount of difficulty laying flat and she is chronically oxygen dependent and her oxygen demands of increased slightly. REVIEW OF SYSTEMS: A 10 point review of systems was performed and is negative with the exception of the elements mentioned in the history of present illness. PHYSICAL EXAM: HR, BP, O2 Sat, RR. Temp noted General Appearance: Alert, well hydrated, appropriate, and non-toxic appearing. Head: Atraumatic without scalp tenderness or obvious injury Eyes: Pupils equal, round, reactive to light and accommodation, EOMI, no trauma , no injection. Ears: Clear bilaterally, no perforation, normal landmarks Nose: Atraumatic, no rhinorrhea, clear. Throat: There is no erythema or exudates, no lesions, normal tonsils, mucus membranes moist. Neck: Supple, 2+ carotid upstroke, nontender, no lymphadenopathy. Respiratory: No retractions, no distress, no wheezes, and no accessory muscle use. Bilateral rales retirement up Cardiovascular: Regular rate and rhythm - paced, no murmurs, rubs, or gallops. Bilateral carotid, radial, dorsalis pedis, and posterior tibial pulses intact. Good capillary refill all extremities. Gastrointestinal: Abdomen is soft, nontender, non-distended, no masses, no rebound, no guarding, no peritoneal signs. Musculoskeletal: Normal active ROM of all extremities, atraumatic. Neurological: Alert, appropriate, and interactive. The patient has normal DTRs and non-focal cranial nerves, motor, sensory, and cerebellar exam. Skin: No rashes, good turgor, no nodules on palpation. Past medical history: CHF, hypertension, atrial fibrillation, rhythm disturbance requiring pacer Past surgical history: Pacemaker placement otherwise noncontributory for this visit Family history: Coronary artery disease, hypertension, strokes Social history: Single, does not use tobacco drugs or alcohol, has recently moved [place], her son is her main top lift and automatic window repairer and is here. DIAGNOSTICS/PROCEDURES/CRITICAL CARE TIME: The 12 lead EKG was interpreted by myself. See hard copy and/or "tracemaster" electronic copy for interpretation. Consistent atrial flutter with a controlled ventricular rate at about 74 and paced. Study: PA and Lateral Chest X-ray Indication: SOB Results: I viewed the images myself on the PACS system. My interpretation of the images is: Mild CHF. The radiologist interpretation is pending at the time of this dictation. DIFFERENTIAL DIAGNOSIS: The differential diagnosis for the patient's shortness of breath and hypoxemia included but was not limited to pneumonia, myocardial infarction, congestive heart failure, and pulmonary embolus. MEDICAL DECISION MAKING: This patient most likely has a CHF exacerbation based on my clinical examination and her historical medical history. I have ordered laboratory studies including a chest x-ray and EKG. This patient is a very difficult access problem and I will also order a PICC line. We were able to establish peripheral access so PICC line was not necessary. This patient has been in the emergency department for a couple of hours now and she is on the same amount of oxygen as usual which is 2.5 L. She has no increased oxygen demand no increased work of breathing. She does have a BNP of about 900 I have given her some additional Lasix and she is urinating well. I will have a discussion with the patient regarding admission versus outpatient management for this problem. The biggest problem is she does not have established Cardiology locally so if we discharge her I will make sure that she has appropriate connection to Cardiology. 1516: Consulted with Dr. Dunne, cardiology. He recommends admission. 1524: Consulted with Dr. Swain, hospitalist. He accepts admission. - Data Points Laboratory Results: Laboratory Results 05/23/17 12:55 05/23/17 13:45 05/23/17 05/23/17 05/23/17 Unknown 13:45 12:55 WBC RBC Hgb Hct MCV MCH MCHC RDW Plt Count MPV Neut % (Auto) Lymph % (Auto) Piute % (Auto) Eos % (Auto) Baso % (Auto) Nucleat RBC Rel Count Absolute Neuts (auto) Absolute Lymphs (auto) Absolute Monos (auto) Absolute Eos (auto) Absolute Basos (auto) Absolute Nucleated RBC Immature Gran % Immature Gran # PT 29.3 SEC H SEC (12.0-15.0) INR 2.74 H (0.83-1.16) APTT 45.0 SEC H SEC (23.0-38.0) D-Dimer 0.50 ug/mLFEU ug/mLFEU (0.00-0.50) Sodium 142 mEq/L mEq/L (134-144) Potassium 4.9 mEq/L mEq/L (3.5-5.2) Chloride 102 mEq/L mEq/L (97-110) Carbon Dioxide 29 mEq/l mEq/l (22-31) Anion Gap 11 mEq/L mEq/L (8-16) BUN 37 mg/dL H mg/dL (7-23) Creatinine 0.9 mg/dL mg/dL (0.6-1.0) Estimated GFR 60 Glucose 125 mg/dL H mg/dL (70-100) Calcium 9.8 mg/dL mg/dL (8.5-10.4) Magnesium 2.1 mg/dL mg/dL (1.6-2.3) Troponin I < 0.012 ng/mL ng/mL (0-0.034) NT-Pro-B Natriuret Pep 899 pg/mL H pg/mL (0-450) 05/23/17 12:55 WBC 6.46 10^3/uL 10^3/uL (3.80-9.50) RBC 4.85 10^6/uL 10^6/uL (4.18-5.33) Hgb 14.6 g/dL g/dL (12.6-16.3) Hct 45.6 % % (38.0-47.0) MCV 94.0 fL fL (81.5-99.8) MCH 30.1 pg pg (27.9-34.1) MCHC 32.0 g/dL L g/dL (32.4-36.7) RDW 14.5 % % (11.5-15.2) Plt Count 171 10^3/uL 10^3/uL (150-400) MPV 10.6 fL fL (8.7-11.7) Neut % (Auto) 69.7 % % (39.3-74.2) Lymph % (Auto) 20.0 % % (15.0-45.0) Piute % (Auto) 6.5 % % (4.5-13.0) Eos % (Auto) 2.9 % % (0.6-7.6) Baso % (Auto) 0.6 % % (0.3-1.7) Nucleat RBC Rel Count 0.0 % % (0.0-0.2) Absolute Neuts (auto) 4.50 10^3/uL 10^3/uL (1.70-6.50) Absolute Lymphs (auto) 1.29 10^3/uL 10^3/uL (1.00-3.00) Absolute Monos (auto) 0.42 10^3/uL 10^3/uL (0.30-0.80) Absolute Eos (auto) 0.19 10^3/uL 10^3/uL (0.03-0.40) Absolute Basos (auto) 0.04 10^3/uL 10^3/uL (0.02-0.10) Absolute Nucleated RBC 0.00 10^3/uL 10^3/uL (0-0.01) Immature Gran % 0.3 % % (0.0-1.1) Immature Gran # 0.02 10^3/uL 10^3/uL (0.00-0.10) PT INR APTT D-Dimer Sodium Potassium Chloride Carbon Dioxide Anion Gap BUN Creatinine Estimated GFR Glucose Calcium Magnesium Troponin I NT-Pro-B Natriuret Pep Medications Given: Discontinued Medications Furosemide (Lasix Injection) 40 mg IVP EDNOW ONE Stop: 05/23/17 14:31 Last Admin: 05/23/17 14:45 Dose: 40 mg Departure - Departure Disposition: [facility] Inpatient Acute Clinical Impression: CHF (congestive heart failure) Qualifiers: Congestive heart failure type: unspecified congestive heart failure type Congestive heart failure chronicity: chronic Qualified Code(s): I50.9 - Heart failure, unspecified Condition: Fair Referrals: UNKNOWN,PCP [Other] - As per Instructions
[2017-05-23] MEDS ORDERED: ALTEPLASE 2 MG VIAL IVP PRN (12:58)
[2017-05-23 12:59] LABS: % IMMATURE GRANULYOCYTES 0.3 % (0.0-1.1); ABSOLUTE IMMATURE GRANULOCYTES 0.02 10^3/uL (0.00-0.10); ADD DIFF? NO; ADD MORPH? NO; ADD SCAN? NO; ATYPICAL LYMPHOCYTE FLAG 10 (0-99); FRAGMENT RBC FLAG 0 (0-99); HEMATOCRIT 45.6 % (38.0-47.0); HEMOGLOBIN 14.6 g/dL (12.6-16.3); LEFT SHIFT FLG 0 (0-99); LIPEMIA HEMOLYSIS FLAG 80 (0-99); MEAN CELL HEMOGLOBIN 30.1 pg (27.9-34.1); MEAN PLATELET VOLUME 10.6 fL (8.7-11.7); PLATELET CLUMPS FLAG 10 (0-99); PLATELET COUNT 171 10^3/uL (150-400); RED BLOOD CELL COUNT 4.85 10^6/uL (4.18-5.33); RED CELL DISTRIBUTION WIDTH 14.5 % (11.5-15.2)
[2017-05-23 14:05] LABS: ANION GAP 11 mEq/L (8-16); CALCIUM 9.8 mg/dL (8.5-10.4); CARBON DIOXIDE 29 mEq/l (22-31); CHLORIDE 102 mEq/L (97-110); CREATININE 0.9 mg/dL (0.6-1.0); GLOMERULAR FILTRATION RATE 60; GLUCOSE 125 mg/dL (70-100); MAGNESIUM 2.1 mg/dL (1.6-2.3); POTASSIUM 4.9 mEq/L (3.5-5.2); SODIUM 142 mEq/L (134-144)
[2017-05-23 14:17] LABS: TROPONIN I < 0.012 ng/mL (0-0.034)
[2017-05-23] MEDS ORDERED: FUROSEMIDE 40 MG/4 ML VIAL IVP ONE (14:30)
[2017-05-23 15:21] LABS: INR 2.74 (0.83-1.16); PROTIME(PATIENT) 29.3 SEC (12.0-15.0)
--- NOTE | 2017-05-23 16:18 | PDGENHP ---
History and Physical History and Physical: CC: Shortness of breath HISTORY: This patient with long history of heart and lung disease and sleep apnea comes to the ER today with complaint of gradually progressive shortness of breath over a period of perhaps 3 months. Interestingly she was here 1 month ago with some chest discomfort but she did make much mention of the dyspnea and there was not a real significant assessment of dyspnea at that time. She had had some chest discomfort in AFib. Her dyspnea again is gradually worse, around the clock not worse at any time of day. Is clearly worse with any exertion and that is when she really is noticing the trouble. Her exertion has become severely limited despite her use of home oxygen. Notably she still using the same 2.5 L of oxygen at home that she has been using for a long time and she has good oxygen saturation on that here now. She does not think her swelling in the legs is any we worse or better , and her weight is approximately stable. She has not had palpitations or chest pain since he was here a month ago. She does not have cough sputum production fever or upper respiratory symptoms. She has not noticed wheezing. She sleeps flat in her bed at night without notice of orthopnea. She states she has been completely compliant with use of CPAP each night through the night , as well as all of her cardiac and respiratory medications. When she was here a month ago she did have an echocardiogram which showed ejection fraction 55-60% but with some akinetic segments of the left ventricle wall. She had no significant valvular abnormalities. The pulmonary pressures and right ventricle and pulmonic valve were all normal. Her last stress test was a myocardial perfusion scan stress a year ago at another center, and her last pulmonary function test was a year ago or thereabouts with Dr. Herron in clinic. She does not recall the specific results of either of those tests but does not recall being told there are any new or different problems. Her heart disease includes coronary disease with 3 stents and apparently a myocardial infarction for which she thinks she was treated at [facility]. In addition she has atrial fibrillation for which she is on rate control and anticoagulants. She also has known COPD and is on inhaled medicines and has sleep apnea for which she has been using nightly CPAP for some years. Notably she has a bridge engineer out at [facility] that she has been seeing but she has an appointment to see someone in the [facility] here although she can't remember who. In addition to all the above the patient approximately a week ago had a cat scratch injury to her left dorsal wrist which became infected and she started on Augmentin therapy which she is still taking. She says this is not particularly painful right now and she thinks it has become less swollen with smaller area of redness. ROS: A comprehensive 10 system review revealed no other significant findings PAST MEDICAL HISTORY: Coronary artery disease, 3 stents, myocardial infarction date and details unknown to me Atrial fibrillation on rate and control anticoagulant COPD Sleep apnea Obesity Diabetes mellitus type 2 Total knee Total shoulder replacement Cholecystectomy ACL repair FAMILY MEDICAL HISTORY: Father of coronary disease complications SOCIAL HISTORY: Recently moved [facility] from [facility] apparently to be near her son Quit smoking years ago No alcohol use MEDICATIONS: The patients list has been reconciled by our clinical pharmacist in the EMR. I have reviewed the list and ordered appropriate medicines. PHYSICAL EXAMINATION: Vital Signs: Mild hypertension otherwise normal without fever Special Procedure Tech: Atrial flutter Examination: General: alert, oriented, good mentation, relaxed She is fairly obese Skin: warm, dry, good color, no rash HEENT: normal Neck: no mass or jvd Resps: Very mildly labored at rest Lungs: Very diminished but clear breath sounds Heart: regular, no murmur but heart tones are quite muted Abdomen: soft, nondistended, nontender, +BS, no mass Upper Extremities: I did examine her left wrist, there is an open wound approximately 0.5 cm by 1.5 cm with one end of that wound open but not draining anything. There is no necrosis, no fluctuance, but there is a small area of cellulitis without much swelling around this wound. Again she says the swelling and redness has gone down significantly. 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, no focal weakness IV site: looks normal LABORATORY DATA: BMP is 899 Troponin unremarkable BUN is at 37 which is actually lower than last month, creatinine normal and electrolytes good, CBC unremarkable RADIOLOGY STUDIES: Chest x-ray, my interpretation of the images: The PA view shows lower lung maxwell largely obscured by fat but there are no silhouette signs and looking at both views there does not appear to be pulmonary edema effusions or infiltrates 12 LEAD EKG: My interpretation of the tracing: Atrial flutter with 4:1 conduction, nothing appears ischemic at this time ASSESSMENT: -progressive hypoxemic renal failure, acute on chronic -primarily right-sided congestive heart failure with probable some diastolic disease, interestingly normal pulmonary pressures on recent echo -known coronary artery disease no chest pain in the last month, no signs of ischemia at this time by exam or symptoms, last study nuclear 1 year ago -chronic atrial flutter, currently rate controlled and on therapeutic anticoagulation -known COPD, no longer smoking with no worsened cough or sputum production and unremarkable chest x-ray -known sleep apnea using CPAP nightly *cat scratch infection L wrist currently treating on augmentin (improved but not fully resolved yet) At this time she really does not give symptoms are examination findings nor laboratory data to suggest what specifically is leading to her really gradually progressive dyspnea but she has become quite debilitated over a period of several weeks to a couple months or so. She is on medical therapy for all of her individual cardiopulmonary problems at this time, and will have to deeper to find cause and solution. My initial thoughts on possible areas for improvement with these: -she does have wall motion abnormalities on echo last month and we need to get old echo to see if these are new, and we need to get myocardial Perfusion stress imaging to see if there are potentially ischemic viable myocardial areas that might respond revascularization -it will be useful to interrogate her pacemaker to be certain that her AFib flutter heart rates remain controlled during all of her activities at home -there is some modest peripheral edema, but this seems unchanged over the last several weeks and her weight not increased so I do not think diuresing her do a skin drier point will make much difference but we can give some IV Lasix here to try -given the findings on her echocardiogram I do not think will be terribly useful to consider ablation or cardioversion would review this with cardiology -her CPAP was prescribed by primary care and she has never seen a sleep specialist, therefore seeing Dr. Godinez in the outpatient setting to be sure her CPAP is optimally set would be helpful (she does mention feeling poorly rested in the morning and has some daytime somnolence and occasional headaches) -she has done cardiac rehab and possibly pulmonary rehab in the past, but has stopped physical activity. Once we get her back to at least being able to walk more easily she could be referred back to outpatient pulmonary rehab and get back to an exercise regimen etc -she has smoked and carried a diagnosis of COPD, but Dr. Sandoval and I reviewed her pulmonary clinic records together. Her PFTs show severe restriction with normal FEV/FVC and no improvement with bronchodilators. Previous trials of long-acting inhaled bronchodilator steroid medicines have not helped. Therefore it is not likely beneficial to try this again. As best I can tell there is no known etiology for her restriction, but Dr. Herron did not feel that oral steroids would be of benefit; thin cut CT will NOT therefore likely be of benefit We have echo here from a month ago and will not repeat that now all PLANS: -admission jobs though may need to change her to inpatient -Lexiscan stress test with myocardial imaging tomorrow morning -attempt to get records from her myocardial infarction and her last outpatient echocardiogram from elsewhere for comparison -attempt further diuresis with IV lasix -interrogate pacemaker to check on heart rates -discuss atrial fibrillation strategy with Cardiology -outpatient referral to Dr. Godinez to reassess her CPAP to make sure it is optimally adjusted -continue her augmentin -I asked nurse to place wound gel and appropriate dressing on wrist, and this should be followed here and check on arrangements for proper wound care f/u upon DC. If pt still here thursday a consult w wound care nurse has been ordered I have reviewed the patient's case in detail with Dr. Shaffer and Dr. Dunne I have reviewed the patient's past medical records as part of this assessment, including previous hospital admissions
[2017-05-23] MEDS ORDERED: NITROGLYCERIN 0.4 MG BTL SL PRN (16:49)
[2017-05-23] MEDS ORDERED: ZOLPIDEM TARTRATE 5 MG TAB PO PRN (17:11)
[2017-05-23] MEDS ORDERED: ONDANSETRON 4 MG/2 ML VIAL IVP PRN (17:11)
[2017-05-23] MEDS ORDERED: ACETAMINOPHEN 325 MG TAB PO PRN (17:11)
[2017-05-23] MEDS: WARFARIN SODIUM 4 MG TAB PO SCH (18:15)
[2017-05-23] MEDS: AMOXICILLIN/CLAVULANATE POT 875/125 MG TAB PO SCH (21:11)
[2017-05-23] MEDS: METOPROLOL SUCCINATE XR 100 MG TAB PO SCH (21:12)
[2017-05-23] MEDS: ISOSORBIDE MONONITRATE 30 MG TAB.SR PO SCH (21:12)
[2017-05-24 05:25] LABS: INR 2.97 (0.83-1.16); PROTIME(PATIENT) 31.3 SEC (12.0-15.0)
[2017-05-24 05:35] LABS: ANION GAP 9 mEq/L (8-16); CALCIUM 9.7 mg/dL (8.5-10.4); CARBON DIOXIDE 32 mEq/l (22-31); CHLORIDE 101 mEq/L (97-110); GLOMERULAR FILTRATION RATE 53; GLUCOSE 112 mg/dL (70-100); MAGNESIUM 1.9 mg/dL (1.6-2.3); POTASSIUM 4.7 mEq/L (3.5-5.2); SODIUM 142 mEq/L (134-144)
[2017-05-24 05:43] LABS: % SATURATION 29 % (20-55); TOTAL IRON BINDING CAPACITY 371 ug/dL (260-490)
--- NOTE | 2017-05-24 05:56 | CPEKG ---
Heart Rate: 70 RR Interval: 857 P-R Interval: 196 QRSD Interval: 88 QT Interval: 392 QTC Interval: 423 P [place]: 34 QRS [place]: 70 T Wave [place]: -3 EKG Severity - ABNORMAL ECG - EKG Impression: ATRIAL-PACED COMPLEXES EKG Impression: BORDERLINE T ABNORMALITIES, INFERIOR LEADS Electronically Signed By: Honorio Snow 25-May-2017 17:30:14
[2017-05-24 06:06] LABS: FERRITIN - BCH 89.7 ng/mL (6.2-264.0)
[2017-05-24] MEDS ORDERED: ALBUTEROL INH PREPACK MDI TAKEHOME PRN (08:52)
[2017-05-24] MEDS ORDERED: NON-FORMULARY NEW DRUG (Diltiazem Hcl [Cartia Xt 180mg] 180 MG) PO SCH (09:00)
[2017-05-24] MEDS: POTASSIUM CL 20 MEQ TAB PO SCH (09:10)
[2017-05-24] MEDS: AMOXICILLIN/CLAVULANATE POT 875/125 MG TAB PO SCH (09:10)
[2017-05-24] MEDS: METOPROLOL SUCCINATE XR 100 MG TAB PO SCH ×2 (09:10→20:51)
[2017-05-24] MEDS: DILTIAZEM CD 180 MG CAP PO SCH (09:11)
[2017-05-24] MEDS: FUROSEMIDE 40 MG/4 ML VIAL IVP SCH ×2 (09:11→15:30)
[2017-05-24] MEDS: CHOLECALCIFEROL VIT D3 1,000 UNITS TAB PO SCH (09:11)
[2017-05-24] MEDS ORDERED: ALBUTEROL 200 PUFFS/18 GM MDI IH PRN (09:25)
--- NOTE | 2017-05-24 15:30 | HOSPPROG ---
Hospitalist Progress Note Assessment/Plan: Assessment: 87-year-old female presents with symptomatically worsening chronic respiratory failure secondary to acute right-sided and diastolic congestive heart failure exacerbation, complicated by atrial flutter as well as restrictive lung disease Plan: 1. Acute right-sided and diastolic congestive heart failure exacerbation. Acute , new problem this provider, further workup indicated. Evidenced by chest x- ray with pulmonary edema, personally interpreted, BNP of 900, lower extremity edema and increasing abdominal girth with suspected underlying fluid -discussed with Dr. Shannon, we agreed that nuclear stress test is prudent to rule out ischemic component -continue IV Lasix 40 mg twice daily, monitoring strict I&Os 2. Atrial flutter. Unclear burden, interrogation ordered -currently anticoagulated with Coumadin -continue on home medications and monitor on telemetry 3. Restrictive lung disease. Chronic, secondary to a long history of smoking, full pulmonary function tests reviewed via Dr. Swain history and physical note from 05/23/2017 -continue home medications -does not appear that there are further interventions available 4. Obstructive sleep apnea. Potentially contributing to daytime fatigue somnolence and worsening right-sided heart failure -will consult with Pulmonary tomorrow -continue CPAP -will need outpatient follow up with Dr. Godinez 5. Chronic hypoxic respiratory failure. Patient is on 2.5 L supplemental oxygen at home, and she has been continued on this during this hospitalization Diet. Cardiac prophylaxis. High risk patient, systemically anticoagulated Code. Do not resuscitate Disposition. Anticipated discharge is uncertain this time, upgraded to inpatient admission status as anticipated length stay is greater than 2 midnights for reasonable medical necessity including acute congestive heart failure exacerbation requiring further diagnostic workup with stress test imaging throughout ischemic component in the setting of high risk comorbid conditions. Subjective: Patient reports that she is fatigued all the time and her abdomen is tight Objective: Vital Signs Temp Pulse Resp BP Pulse Ox 36.6 C 70 24 H 126/69 H 97 05/24/17 14:54 05/24/17 14:54 05/24/17 14:54 05/24/17 14:54 05/24/17 14:54 Laboratory Results 05/24/17 04:17 05/23/17 05/24/17 05/25/17 05:59 05:59 05:59 Intake Total 200 450 Output Total 200 1500 Balance 0 -1050 PT 31.3 SEC (12.0-15.0) H 05/24/17 04:17 INR 2.97 (0.83-1.16) H 05/24/17 04:17 - Physical Exam Constitutional: no apparent distress, not in pain, chronically ill appearing, obese, No uncomfortable Cardiovascular: irregularly irregular, JVD, edema (1+ bilateral lower extremity) , No systolic murmur, No tachycardia Respiratory: inspiratory crackles, No reduced air movement, No expiratory wheeze , No bronchial breath sounds Gastrointestinal: normoactive bowel sounds, distension (Moderate to severely distended and tense), No tenderness, No guarding Neurologic: AAOx3, No weakness (Motor strength 5/5 bilateral lower extremity) Psychiatric: interacting appropriately, not anxious, not encephalopathic, thought process linear, other (Lethargic but arousable) ICD10 Worksheet Patient Problems: Problems Problem Status Onset SVT (supraventricular tachycardia) Acute Chest pain Acute Palpitations Acute Atrial fibrillation Acute CHF (congestive heart failure) Acute
--- NOTE | 2017-05-24 16:11 | GCON ---
[f rep st] CONSULTATION CARDIOLOGY CONSULTATION DATE OF CONSULTATION: 05/24/2017 REFERRING PHYSICIAN: Demond Swain MD INDICATION FOR CONSULTATION: Patient with progressive history of dyspnea on exertion and shortness of breath in the setting of known history of coronary artery disease. HISTORY OF PRESENT ILLNESS: The patient is a pleasant 87-year-old female with an extensive cardiac history, including previous myocardial infarction with PCI x3 in 2000, atrial fibrillation, atrial flutter, permanent pacemaker implantation and history of sleep apnea treated with chronic CPAP, who presents to [facility] with complaints of increasing shortness of breath and dyspnea on exertion that have become gradually more bothersome over the last 3 months. She denies any complaints of PND, orthopnea, or increasing lower extremity edema. She has no complaints of substernal chest pain or chest pressure. She denies complaints of palpitations, dizziness, lightheadedness, near-syncope, or syncope. Of note, she was admitted in the middle of March 2017 with complaints of chest discomfort. She had indeterminate troponins at that time, and was discharged home without further risk stratification. She did undergo complete 2D echocardiogram demonstrating LVEF of 55% to 60% with evidence of basal inferior , basal inferoseptal and basal inferolateral wall hypokinesis. Right ventricular systolic pressure was normal. Atrial dimensions were normal. No significant valvular disease. The patient does have a known history of underlying COPD and restrictive lung disease based on pulmonary function studies. She does have a 50-year history of smoking. She quit approximately 10 years ago. Currently at the time of my exam, she is resting comfortably without complaint. REVIEW OF SYSTEMS: Positive for shortness of breath and dyspnea on exertion. Negative for chest pain, chest pressure, palpitations, dizziness, lightheadedness, near-syncope, or syncope. Negative for PND, orthopnea, or increasing lower extremity edema. Negative for nausea, vomiting, or diaphoresis. Negative for bleeding issues. No other significant findings on comprehensive 10-point review of systems. PAST MEDICAL HISTORY: 1. Coronary artery disease with PCI x3 with myocardial infarction in 2000. 2. Atrial fibrillation. 3. Atrial flutter. 4. COPD. 5. Sleep apnea, on chronic CPAP. 6. Diabetes. 7. COPD. 8. Obesity. PAST SURGICAL HISTORY: Includes total knee replacement, ACL repair, total shoulder replacement and cholecystectomy. FAMILY HISTORY: The patient's father of complications of coronary artery disease. No known family history of premature coronary artery disease. SOCIAL HISTORY: The patient recently moved to [place] from [place] to be closer to her grandson. She has a 50-year history of smoking, quit approximately 10 years ago. No history of alcohol use. MEDICATIONS ON ADMISSION: Include Coumadin, metoprolol succinate 150 mg daily, isosorbide mononitrate 30 mg at bedtime, Lasix 40 mg daily, diltiazem 180 mg daily, vitamin D3 1000 units daily, Augmentin 875 mg p.o. b.i.d., albuterol 1 to 2 puffs q.4 hours p.r.n., and potassium chloride 20 mEq daily. ALLERGIES TO MEDICATIONS: Include morphine. PHYSICAL EXAMINATION: VITAL SIGNS: Blood pressure 127/67, heart rate 68, atrial paced, respiratory rate of 18, oxygen saturation 96% on 3 L. Temperature 36.7. GENERAL: She is awake, alert, oriented, appropriate, in no apparent distress. NECK: There is no evidence of JVP or carotid bruits. LUNGS : Clear to auscultation bilaterally with some bilateral bronchial breath sounds. CARDIAC: S1, S2, regular rate and rhythm. No murmurs, rubs, or gallops. She is currently atrial paced. ABDOMEN: Obese, soft, nontender. It feels mildly distended and tympanitic to percussion. EXTREMITIES: She has trace stable ankle edema with no evidence of clubbing or cyanosis. DATA: Lab work demonstrates white blood cell count of 6.46, hemoglobin of 14.6 , hematocrit 45.6, and platelet count 171. INR is 2.97. Sodium 142, potassium 4.7, chloride 101, bicarb 32, BUN 39, creatinine is 1, glucose 112, magnesium 1.9. AST 34, ALT 41. Troponin less than 0.012. BNP 899. Previous value from May 07 was 707. TSH normal at 2.34. Echocardiogram from last month demonstrates LVEF of 55% to 60% with basal inferior, inferoseptal, and inferolateral wall akinesis. EKG demonstrates 4:1 atrial flutter. IMPRESSION: 1. Dyspnea on exertion and shortness of breath. 2. Coronary artery disease. 3. Atrial fibrillation and atrial flutter with chronic anticoagulation. 4. Basal inferior wall akinesis. 5. Chronic obstructive pulmonary disease with restrictive physiology on pulmonary function studies. 6. Pacemaker. We will plan for interrogation. The patient is a pleasant 87-year-old female with multiple medical comorbidities with a 3-month history of increasing shortness of breath and dyspnea on exertion. Her echocardiogram from last month demonstrates inferior wall hypokinesis with preserved left ventricular function and normal pulmonary pressures. Overall, I am impressed with her cardiac function given her medical history. Her BNP is 899 and in the setting of atrial fibrillation and obesity is not surprising and in my opinion remarkably good for someone in her condition. She has no complaints of PND, orthopnea, weight gain or increasing lower extremity edema, and history is not consistent with heart failure. I am concerned that her symptoms may represent progression of underlying coronary artery disease. We have discussed in detail options including pharmacologic nuclear stress test versus diagnostic left and potentially right heart catheterization versus continued ongoing medical management. We had a lengthy discussion regarding these procedures and the risks and benefits. She states that at her age with her medical comorbidities that she is not certain she is interested in pursuing any further diagnostic tests, particularly invasive tests such as heart catheterizations. She asked that I speak to her grandson, who is a 32-year-old gentleman who is trained as an emergency emergency medical dispatcher whose is a nurse. He has been involved in her care at some length. He feels that she would not wish to pursue further invasive strategy. I left it with the patient that at this point we would not schedule any further cardiac testing, be it stress test or left heart catheterization so she had further time to consider these options on her own and discuss on her own in private with her grandson. In the interim, would recommend she continue her current cardiac medical therapy. PLAN: 1. Continue current cardiac medications. 2. The patient to consider options of further risk stratification. 3. Certainly, in a woman with multiple medical comorbidities at the age of 87, I am comfortable with maintaining her current medical therapy without further cardiac intervention. 45 minutes spent coordinating patient care /[id number]/MODL MTDD
[2017-05-24] MEDS: WARFARIN SODIUM 4 MG TAB PO SCH (18:33)
[2017-05-24] MEDS: ISOSORBIDE MONONITRATE 30 MG TAB.SR PO SCH (20:50)
[2017-05-25 04:18] LABS: INR 2.82 (0.83-1.16)
[2017-05-25 04:19] LABS: ALBUMIN 3.7 g/dL (3.5-5.0); ANION GAP 8 mEq/L (8-16); CALCIUM 9.4 mg/dL (8.5-10.4); CARBON DIOXIDE 35 mEq/l (22-31); CHLORIDE 99 mEq/L (97-110); CREATININE 1.1 mg/dL (0.6-1.0); GLOMERULAR FILTRATION RATE 47; GLUCOSE 127 mg/dL (70-100); POTASSIUM 4.5 mEq/L (3.5-5.2); SODIUM 142 mEq/L (134-144)
[2017-05-25] MEDS: METOPROLOL SUCCINATE XR 100 MG TAB PO SCH (09:08)
[2017-05-25] MEDS: DILTIAZEM CD 180 MG CAP PO SCH (09:09)
[2017-05-25] MEDS: CHOLECALCIFEROL VIT D3 1,000 UNITS TAB PO SCH (09:09)
[2017-05-25] MEDS: POTASSIUM CL 20 MEQ TAB PO SCH (09:10)
[2017-05-25 11:57] LABS: BASE EXCESS 6.9 mEq/L (-2.5-2.5); BICARBONATE 38 mEq/L (22-26); MEASURED OXYGEN SATURATION 95 % (92-95); PO2 92 mmHg (65-75)
[2017-05-25] MEDS ORDERED: IOPAMIDOL (ISOVUE 370) 100 ML BTL IV ONE (12:06)
[2017-05-25 13:00] VITALS: BP 138/75; PULSE 82; RESP 24; TEMP 97.4; O2SAT 98
[2017-05-25 14:02] LABS: BASE EXCESS 7.7 mEq/L (-2.5-2.5); BICARBONATE 38 mEq/L (22-26); MEASURED OXYGEN SATURATION 98 % (92-95); PO2 121 mmHg (65-75); TCO2 41 mEq/L (23-27)
[2017-05-25 14:09] LABS: BIPAP YES; PCO2 91 mmHg (34-38)
[2017-05-25 14:10] LABS: EXP PRESSURE 5; INSP PRESSURE 15
[2017-05-25 14:11] LABS: O2 CONCENTRATIION 50 % (0-100); P/F RATIO 242 RATIO
[2017-05-25 14:52] LABS: PCO2 92 mmHg (34-38); TCO2 41 mEq/L (23-27)
--- NOTE | 2017-05-25 15:46 | HOSPPROG ---
Hospitalist Progress Note Assessment/Plan: Assessment: 87-year-old female presents with symptomatically worsening chronic respiratory failure secondary to acute right-sided and diastolic congestive heart failure exacerbation, complicated by atrial flutter, restrictive lung disease, acute metabolic encephalopathy, acute hypercapnic respiratory failure Plan: 1. Acute right-sided and diastolic congestive heart failure exacerbation. No e/ o worsening this AM, due to patient's clinical deterioration, we are holding further diuretics 2. Atrial flutter. Unclear burden, interrogation moot point at this juncture 3. Restrictive lung disease. Chronic, does not appear that there are further interventions available 4. Obstructive sleep apnea. Potentially contributing to daytime fatigue somnolence and worsening right-sided heart failure 5. Chronic hypoxic respiratory failure. Patient is on 2.5 L supplemental oxygen at home, and she has been continued on this during this hospitalization 6. Acute metabolic encephalopathy. Evidenced by global brain dysfunction characterized as somnolence, obtundation, acute onset and significant change from her baseline earlier this morning, secondary to the metabolic effects of hypercapnia and acidosis - code stroke called, head CT without intracranial hemorrhage, hypercapnia identified as the cause 7. Acute hypercapnic respiratory failure. Evidenced by pCO2 of 92 with resultant respiratory acidosis, unclear precipitant, patient has no indication that her condition is reversible by outpatient pulmonary function tests and her condition is terminal - discussed with patient's medical power of immigration attorney, her grandson, as well as the patient and Dr. Shannon - after approximately 2 hours of BiPAP therapy, the patient's pCO2 remains in the 90s - we all agree that the patient's goals of care are to pursue comfort measures and after a trial of BiPAP therapy, the patient is ready to remove the mask 8. Acidosis. Acute, respiratory acidosis, secondary to hypercapnia outlined above Diet. Cardiac prophylaxis. High risk patient, systemically anticoagulated Code. Do not resuscitate, comfort measures only Disposition. Patient expected to within next 24 hours 50 minutes of critical care time spent for this patient, addressing issues outlined above, patient remains critically ill and she will most likely within the next 24 hours from hypercapnic respiratory failure. Subjective: The patient was completely obtunded upon my evaluation of her 11:40 a.m. Objective: Vital Signs Temp Pulse Resp BP Pulse Ox 36.3 C 82 24 H 138/75 H 98 05/25/17 12:56 05/25/17 12:56 05/25/17 12:56 05/25/17 12:56 05/25/17 12:56 Laboratory Results 05/25/17 03:49 05/24/17 05/25/17 05/26/17 05:59 05:59 05:59 Intake Total 1050 Output Total 520 Balance 530 PT 30.0 SEC (12.0-15.0) H 05/25/17 03:49 INR 2.82 (0.83-1.16) H 05/25/17 03:49 - Physical Exam Constitutional: no apparent distress, not in pain, chronically ill appearing, No uncomfortable Cardiovascular: edema ( trace bilateral lower extremities), No irregularly irregular, No tachycardia Respiratory: other ( poor inspiratory and expiratory air movement), No inspiratory crackles Neurologic: other ( alert awake oriented times 0, patient opens eyes to tactile stimuli but not verbal stimuli) ICD10 Worksheet Patient Problems: Problems Problem Status Onset SVT (supraventricular tachycardia) Acute Chest pain Acute Palpitations Acute Atrial fibrillation Acute CHF (congestive heart failure) Acute
[2017-05-25] MEDS ORDERED: LORazepam 2 MG/ML INJ IVP PRN ×2 (15:50→18:10)
[2017-05-25] MEDS ORDERED: SCOPOLAMINE HYDROBROMIDE 1.5 MG PATCH TD SCH (16:00)
--- NOTE | 2017-05-25 16:03 | PDCARPN ---
Cardiology Progress Note Chief Complaint: SOB, TRONCOSO Assessment/Plan: Assessment: 1. Acute on chronic respiratory distress Plan: -would recommned hospice consult and comfort measures only in the setting of decline of respiratory status based on my conversation with her yesterday. -I have discussed with pts daugher the conversation I had yesterday. She is in support of comfort measures. -Case discussed with Dr. Melton 05/25/17 16:01 Subjective: Mrs. Freeman notes increasing shortness of breath over the last 24 hours. She denies complaints of chest pain or pressure. Mrs. Freeman and I had long discussion yesterday about further management of her sympotms. She did not want to pursue cardiac testing. Reviewed/Discussed With: family, hospitalist, multidisciplinary team Time Spent With Patient: 30 min Objective: Vital Signs (8 Hrs) Temp Pulse Resp BP Pulse Ox 05/25/17 12:56 36.3 C 82 24 H 138/75 H 98 05/25/17 12:37 85 13 130/103 H 97 05/25/17 11:54 36.6 C 83 18 156/74 H 93 Intake/Output (24 Hrs) 05/24/17 05/25/17 05/26/17 05:59 05:59 05:59 Intake Total 1050 Output Total 520 Balance 530 Intake: Oral (ml) 1050 Output: Urine (ml) 520 Toilet 520 Other: Weight 85.2 kg Result Diagrams: 05/23/17 12:55 05/25/17 03:49 - Physical Exam Constitutional: apparent distress Cardiovascular: regular rate and rhythm, no murmurs, no rubs, no gallops Respiratory: reduced air movement, bronchial breath sounds Skin: no rashes Neurologic: AAOx3 Psychiatric: cooperative ICD10 Worksheet Patient Problems: Problems Problem Status Onset CHF (congestive heart failure) Acute Atrial fibrillation Acute Chest pain Acute Palpitations Acute SVT (supraventricular tachycardia) Acute
[2017-05-25] MEDS ORDERED: morphINE 10 MG/0.5 ML UDSYR PO PRN ×2 (16:19→17:52)
--- NOTE | 2017-05-26 17:44 | PDDCSUM ---
Discharge Summary Discharge Summary: DISCHARGE SUMMARY Time of : Patient at 6:42 p.m. on 05/25/2017 DATE OF ADMISSION: 05/23/2017 DATE OF DISCHARGE: 05/25/2017 DISCHARGE DIAGNOSES/cause of : 1. Acute hypercapnic respiratory failure 2. Acute right-sided and diastolic congestive heart failure exacerbation 3. Atrial flutter 4. Chronic restrictive lung disease 5. Obstructive sleep apnea 6. Chronic hypoxic respiratory failure 7. Acute metabolic encephalopathy 8. Acute respiratory acidosis CONSULTATIONS: Cardiology PROCEDURES / IMAGING: None CHIEF COMPLAINT: Acute shortness of breath and weakness HOSPITAL COURSE BY PROBLEM: The patient presented with acute right-sided and diastolic congestive heart failure exacerbation in the setting of known chronic restrictive lung disease and chronic hypoxic respiratory failure. The patient was initiated on diuresis and her other home medications were continued. Patient developed acute hypercapnic respiratory failure and this involved into acute metabolic encephalopathy with acute respiratory acidosis. The patient was temporarily placed on BiPAP therapy, and then goals of care were defined with the patient's medical power of litigation attorney associate, notably her grandson. He stated that the patient had been very clear in her goals of care that she would not want aggressive measures or further resuscitation. This plan was consistent with the goals of care conversation conducted between the patient, her grandson, and Dr. Shannon on , at which time the decision was made not to pursue cardiac catheterization. Patient's family arrived and interacted with the patient, and the patient and her family decided together to removed the BiPAP therapy. Comfort measures were initiated with scopolamine, Ativan, Roxanol. On 05/24 1:00 p.m., the patient's respirations became shallow and apneic, and she was pronounced at 6:42 p.m.. She peacefully. Our condolences go out to the family of patient Gale Freeman.
[2017-05-26] MEDS ORDERED: WARFARIN SODIUM 5 MG TAB PO SCH (18:00)
[2017-05-28] MEDS ORDERED: PATCH REMOVAL 1 EA PATCH TD SCH (15:51)
== END 2017-05-25 20:47 | disposition expired | DRG 291 ==
LOC: F2W 16:32 → OBSVTOIN 05-24 15:41
PROVIDERS: ADMIT Internal Medicine; ATTEND Internal Medicine
DX: I13.0 Hypertensive heart and chronic kidney disease with heart failure and stage 1 through stage 4 chronic kidney disease, or unspecified chronic kidney disease (principal); I50.31 Acute diastolic (congestive) heart failure; J96.21 Acute and chronic respiratory failure with hypoxia; G93.41 Metabolic encephalopathy; J44.9 Chronic obstructive pulmonary disease, unspecified; E11.9 Type 2 diabetes mellitus without complications; N18.9 Chronic kidney disease, unspecified; I48.91 Unspecified atrial fibrillation; I48.92 Unspecified atrial flutter; G47.33 Obstructive sleep apnea (adult) (pediatric); E66.9 Obesity, unspecified; I25.10 Atherosclerotic heart disease of native coronary artery without angina pectoris; I25.2 Old myocardial infarction; Z99.81 Dependence on supplemental oxygen; Z96.612 Presence of left artificial shoulder joint; Z95.0 Presence of cardiac pacemaker; Z96.652 Presence of left artificial knee joint; Z87.891 Personal history of nicotine dependence; Z95.5 Presence of coronary angioplasty implant and graft; Z66 Do not resuscitate
CPT/HCPCS: 96374; G0378; J1940; J2060; J2405; Q9967